=== PATIENT | female | born 1995 | race Caucasian/White ===

== ENCOUNTER 2020-07-13 02:49 | Emergency (ER) | payer OTHER ==
[~2020-07-13 02:49] MED LIST: COLACE 100MG C100 MG PO; NORCO 5-325 TA1 EACH PO
== END 2020-07-13 03:15 | disposition left against medical advice (07) ==
LOC: ER1 02:49
DX: Z53.21 Procedure and treatment not carried out due to patient leaving prior to being seen by health care provider (principal)

== ENCOUNTER 2021-10-25 18:48 | Outpatient (CLI) | payer OTHER | END 2021-10-25 20:10 | disposition home or self-care (01) | LOC: GENOP 18:48 | DX: O99.891 Other specified diseases and conditions complicating pregnancy (principal); N89.8 Other specified noninflammatory disorders of vagina; M54.9 Dorsalgia, unspecified; Z3A.35 35 weeks gestation of pregnancy | CPT/HCPCS: 81001; 84112; G0463 ==

== ENCOUNTER 2021-11-22 16:32 | Inpatient (IN) | payer OTHER ==
[~2021-11-22] VITALS: Ht 167.6 cm; Wt 90.3 kg
[2021-11-22 16:58] LABS: HEMOGLOBIN 10.8 gm/dl (12.3-15.3); RED BLOOD COUNT 3.89 M/UL (4.00-5.10); WHITE BLOOD COUNT 12.4 K/UL (4.5-11.0)
[2021-11-22] MEDS ORDERED: IBUPROFEN600 MG PO (17:34)
[2021-11-22] MEDS ORDERED: DOCUSATE SODIU250 MG PO (17:34)
[2021-11-22] MEDS ORDERED: AMOXICILLIN875 MG PO (19:26)
[2021-11-22] MEDS ORDERED: VALACYCLOVIR500 MG PO (19:26)
[2021-11-23] MEDS ORDERED: COLACE 100MG C100 MG PO (14:40)
[2021-11-23] MEDS ORDERED: IBUPROFEN800 MG PO (14:40)
[2021-11-24 05:53] LABS: HEMOGLOBIN 9.2 gm/dl (12.3-15.3)
[2021-11-24] MEDS ORDERED: FERROUS SULFAT325 MG PO (11:01)
== END 2021-11-24 19:03 | disposition home or self-care (01) | DRG 806 ==
LOC: OB 16:32
PROVIDERS: ADMIT Obstetrics & Gynecology
PROC: 4A1HXCZ Monitoring of Products of Conception, Cardiac Rate, External Approach (ICD-10-PCS; 2021-11-22)
PROC: 10H073Z Insertion of Monitoring Electrode into Products of Conception, Via Natural or Artificial Opening (ICD-10-PCS; 2021-11-22)
PROC: 10H07YZ Insertion of Other Device into Products of Conception, Via Natural or Artificial Opening (ICD-10-PCS; 2021-11-22)
PROC: 10E0XZZ Delivery of Products of Conception, External Approach (ICD-10-PCS; principal; 2021-11-23)
DX: O98.52 Other viral diseases complicating childbirth (principal); D62 Acute posthemorrhagic anemia; Z37.0 Single live birth; B00.9 Herpesviral infection, unspecified; Z3A.39 39 weeks gestation of pregnancy; Z28.310 Unvaccinated for COVID-19; Z87.891 Personal history of nicotine dependence; Z80.9 Family history of malignant neoplasm, unspecified; Z83.3 Family history of diabetes mellitus; Z83.49 Family history of other endocrine, nutritional and metabolic diseases; O90.81 Anemia of the puerperium
CPT/HCPCS: 36415; 81001; 82800; 85014; 85018; 85025; 90471; 90472; 90686; 90715; G0008; J0595; J2590